=== PATIENT | female | born 1955 | race Hispanic/Latino ===

== ENCOUNTER 2021-10-04 16:58 | Inpatient (IN) | payer MEDICARE, MEDICAID ==
[2021-10-04 18:27] LABS: #Eosinphils 0.1 10x3/uL (0.0-0.5); #Monocytes 0.5 10x3/uL (0.0-1.1); #Neutrophils 4.1 10x3/uL (1.5-8.4); %Basophils 0.4 % (0.0-2.0); %Eosinophils 1.6 % (0.0-6.0); %Lymphocytes 31.2 % (18.0-47.0); %Monocytes 7.2 % (0.0-10.0); %Neutrophils 59.3 % (40.0-75.0); Hemoglobin 12.5 g/dL (12.0-15.5); Mean Corpuscular HGB CONC 32.4 g/dL (32.0-36.0); Mean Corpuscular Hemoglobin 30.4 pg (27.0-33.0); Mean Corpuscular Volume 93.9 fl (81.6-98.3); Mean Platelet Volume 11.8 fl (7.4-10.4); Platelet Count 213 10x3/uL (150-450); RBC Distribution Width 14.3 % (11.5-14.5); Red Blood Cell (RBC) Count 4.11 10x6/uL (3.90-5.03); White Blood Cell (WBC) Count 6.8 10x3/uL (3.5-10.5)
[2021-10-04 18:47] LABS: ALT (SGPT) 44 U/L (8-55); AST (SGOT) 33 U/L (5-34); Albumin 4.1 g/dL (3.4-4.8); Alkaline Phosphatase 105 U/L (40-110); Anion Gap 11 mmol/L (10-20); BUN (Urea Nitrogen) 14 mg/dL (9.8-20.1); Bilirubin, Total 0.6 mg/dL (0.2-1.2); Calc. Creatinine Clearance 0 mL/min (70-130); Calcium 8.9 mg/dL (7.8-10.44); Carbon Dioxide 25 mmol/L (23-31); Chloride 106 mmol/L (98-107); Globulin 2.7 g/dL (2.4-3.5); Glucose 148 mg/dL (80-115); Lipase 12 U/L (8-78); Potassium 3.9 mmol/L (3.5-5.1); Protein, Total 6.8 g/dL (5.8-8.1); Sodium 138 mmol/L (136-145)
[2021-10-04] MEDS ORDERED: HYDROcodone/Acetaminophen 5/325 mg Tablet PO SCH (23:00)
[2021-10-04] MEDS ORDERED: Sodium Chloride 0.9% 1,000 ML IV SCH (23:00)
[2021-10-04 23:08] VITALS: BMI 36.5
[2021-10-05 04:33] LABS: #Eosinphils 0.2 10x3/uL (0.0-0.5); #Monocytes 0.6 10x3/uL (0.0-1.1); #Neutrophils 4.6 10x3/uL (1.5-8.4); %Basophils 0.5 % (0.0-2.0); %Eosinophils 1.9 % (0.0-6.0); %Lymphocytes 30.8 % (18.0-47.0); %Monocytes 7.1 % (0.0-10.0); %Neutrophils 59.6 % (40.0-75.0); Hemoglobin 11.6 g/dL (12.0-15.5); Mean Corpuscular HGB CONC 33.3 g/dL (32.0-36.0); Mean Corpuscular Hemoglobin 31.3 pg (27.0-33.0); Mean Corpuscular Volume 93.8 fl (81.6-98.3); Mean Platelet Volume 11.8 fl (7.4-10.4); Platelet Count 183 10x3/uL (150-450); RBC Distribution Width 14.5 % (11.5-14.5); Red Blood Cell (RBC) Count 3.71 10x6/uL (3.90-5.03); White Blood Cell (WBC) Count 7.7 10x3/uL (3.5-10.5)
[2021-10-05 04:45] LABS: Anion Gap 16 mmol/L (10-20); BUN (Urea Nitrogen) 13 mg/dL (9.8-20.1); Calc. Creatinine Clearance 124 mL/min (70-130); Calcium 8.7 mg/dL (7.8-10.44); Carbon Dioxide 24 mmol/L (23-31); Chloride 111 mmol/L (98-107); Glucose 102 mg/dL (80-115); Magnesium 2.1 mg/dL (1.6-2.6); Sodium 147 mmol/L (136-145)
[2021-10-05] MEDS: Enoxaparin Sodium 40 MG/0.4 ML SYRINGE SC SCH (10:04)
[2021-10-05] MEDS: Ondansetron PF 4 MG/2 ML Vial IVP PRN (13:53)
[2021-10-05] MEDS: clonazePAM 1 MG TAB PO PRN (14:00)
[2021-10-05] MEDS: Gabapentin 400 MG CAP PO SCH ×2 (14:00→21:23)
[2021-10-05] MEDS: Fioricet 325/50/40 mg Tablet PO PRN (14:16)
[2021-10-05] MEDS: Polyethylene Glycol 3350 17 GM Packet PO SCH (21:22)
[2021-10-05] MEDS: Montelukast Sodium 10 mg Tablet PO SCH (21:22)
[2021-10-05] MEDS: buPROPion HCl 100 MG TAB PO SCH (21:23)
[2021-10-05] MEDS: Escitalopram Oxalate 20 mg Tablet PO SCH (21:23)
[2021-10-06 04:29] LABS: #Eosinphils 0.2 10x3/uL (0.0-0.5); #Monocytes 0.6 10x3/uL (0.0-1.1); #Neutrophils 4.8 10x3/uL (1.5-8.4); %Basophils 0.4 % (0.0-2.0); %Eosinophils 2.1 % (0.0-6.0); %Lymphocytes 27.6 % (18.0-47.0); %Monocytes 7.2 % (0.0-10.0); %Neutrophils 62.4 % (40.0-75.0); Mean Corpuscular Hemoglobin 30.8 pg (27.0-33.0); Mean Corpuscular Volume 93.3 fl (81.6-98.3); Mean Platelet Volume 11.6 fl (7.4-10.4); Platelet Count 198 10x3/uL (150-450); RBC Distribution Width 14.6 % (11.5-14.5); White Blood Cell (WBC) Count 7.7 10x3/uL (3.5-10.5)
[2021-10-06 04:51] LABS: Anion Gap 12 mmol/L (10-20); BUN (Urea Nitrogen) 15 mg/dL (9.8-20.1); Calc. Creatinine Clearance 117 mL/min (70-130); Calcium 8.9 mg/dL (7.8-10.44); Carbon Dioxide 25 mmol/L (23-31); Chloride 110 mmol/L (98-107); Glucose 94 mg/dL (80-115); Potassium 4.2 mmol/L (3.5-5.1); Sodium 143 mmol/L (136-145)
[2021-10-06] MEDS: Enoxaparin Sodium 40 MG/0.4 ML SYRINGE SC SCH (09:50)
[2021-10-06] MEDS: Famotidine 20 MG TAB PO SCH (09:50)
[2021-10-06] MEDS: Ondansetron PF 4 MG/2 ML Vial IVP PRN (09:50)
[2021-10-06] MEDS: buPROPion HCl 100 MG TAB PO SCH ×2 (09:51→21:52)
[2021-10-06] MEDS: Gabapentin 400 MG CAP PO SCH ×3 (09:51→21:53)
[2021-10-06] MEDS: Fluticasone Propionate Nasal Spray 16 gm Bottle NASAL SCH (09:52)
[2021-10-06] MEDS: Fioricet 325/50/40 mg Tablet PO PRN (09:55)
[2021-10-06] MEDS ORDERED: Bisacodyl 5 MG TAB PO SCH (12:15)
[2021-10-06] MEDS: Scopolamine 1.5 mg/72 hour Patch TD SCH (12:42)
[2021-10-06] MEDS ORDERED: Lisinopril 10 MG TAB PO SCH (17:45)
[2021-10-06] MEDS: Montelukast Sodium 10 mg Tablet PO SCH (21:51)
[2021-10-06] MEDS: Polyethylene Glycol 3350 17 GM Packet PO SCH (21:51)
[2021-10-06] MEDS: Escitalopram Oxalate 20 mg Tablet PO SCH (21:55)
[2021-10-07] MEDS: clonazePAM 1 MG TAB PO PRN ×2 (01:31→13:52)
[2021-10-07] MEDS: Fioricet 325/50/40 mg Tablet PO PRN ×2 (02:53→08:50)
[2021-10-07 04:52] LABS: #Eosinphils 0.1 10x3/uL (0.0-0.5); #Monocytes 0.6 10x3/uL (0.0-1.1); #Neutrophils 4.6 10x3/uL (1.5-8.4); %Basophils 0.5 % (0.0-2.0); %Eosinophils 1.9 % (0.0-6.0); %Lymphocytes 27.8 % (18.0-47.0); %Monocytes 8.4 % (0.0-10.0); %Neutrophils 61.1 % (40.0-75.0); Hemoglobin 11.6 g/dL (12.0-15.5); Mean Corpuscular HGB CONC 32.8 g/dL (32.0-36.0); Mean Corpuscular Hemoglobin 30.6 pg (27.0-33.0); Mean Corpuscular Volume 93.4 fl (81.6-98.3); Mean Platelet Volume 12.3 fl (7.4-10.4); Platelet Count 173 10x3/uL (150-450); RBC Distribution Width 14.6 % (11.5-14.5); Red Blood Cell (RBC) Count 3.79 10x6/uL (3.90-5.03); White Blood Cell (WBC) Count 7.5 10x3/uL (3.5-10.5)
[2021-10-07 05:20] LABS: Anion Gap 17 mmol/L (10-20); BUN (Urea Nitrogen) 15 mg/dL (9.8-20.1); Calc. Creatinine Clearance 112 mL/min (70-130); Calcium 8.8 mg/dL (7.8-10.44); Carbon Dioxide 24 mmol/L (23-31); Chloride 107 mmol/L (98-107); Glucose 119 mg/dL (80-115); Potassium 3.9 mmol/L (3.5-5.1); Sodium 144 mmol/L (136-145)
[2021-10-07] MEDS: Gabapentin 400 MG CAP PO SCH ×4 (08:50→21:49)
[2021-10-07] MEDS: Famotidine 20 MG TAB PO SCH (08:50)
[2021-10-07] MEDS: Lisinopril 20 MG TAB PO SCH (08:51)
[2021-10-07] MEDS: Ondansetron PF 4 MG/2 ML Vial IVP PRN (08:51)
[2021-10-07] MEDS: buPROPion HCl 100 MG TAB PO SCH ×2 (08:51→21:49)
[2021-10-07] MEDS: Fluticasone Propionate Nasal Spray 16 gm Bottle NASAL SCH (08:52)
[2021-10-07] MEDS: Enoxaparin Sodium 40 MG/0.4 ML SYRINGE SC SCH (08:52)
[2021-10-07] MEDS ORDERED: Amlodipine 5 MG TAB PO SCH (21:30)
[2021-10-07] MEDS: Escitalopram Oxalate 20 mg Tablet PO SCH (21:48)
[2021-10-07] MEDS: Montelukast Sodium 10 mg Tablet PO SCH (21:49)
[2021-10-07] MEDS: Polyethylene Glycol 3350 17 GM Packet PO SCH (21:49)
[2021-10-08 05:49] LABS: #Eosinphils 0.2 10x3/uL (0.0-0.5); #Monocytes 0.7 10x3/uL (0.0-1.1); #Neutrophils 3.2 10x3/uL (1.5-8.4); %Basophils 0.5 % (0.0-2.0); %Eosinophils 2.6 % (0.0-6.0); %Lymphocytes 36.8 % (18.0-47.0); %Monocytes 10.6 % (0.0-10.0); Mean Corpuscular HGB CONC 31.7 g/dL (32.0-36.0); Mean Corpuscular Hemoglobin 30.5 pg (27.0-33.0); Mean Corpuscular Volume 95.9 fl (81.6-98.3); Mean Platelet Volume 12.1 fl (7.4-10.4); Platelet Count 183 10x3/uL (150-450); RBC Distribution Width 14.6 % (11.5-14.5); Red Blood Cell (RBC) Count 3.94 10x6/uL (3.90-5.03); White Blood Cell (WBC) Count 6.6 10x3/uL (3.5-10.5)
[2021-10-08 06:03] LABS: Anion Gap 14 mmol/L (10-20); BUN (Urea Nitrogen) 16 mg/dL (9.8-20.1); Calc. Creatinine Clearance 107 mL/min (70-130); Calcium 9.1 mg/dL (7.8-10.44); Carbon Dioxide 27 mmol/L (23-31); Chloride 108 mmol/L (98-107); Glucose 97 mg/dL (80-115); Potassium 4.1 mmol/L (3.5-5.1); Sodium 145 mmol/L (136-145)
[2021-10-08] MEDS: Famotidine 20 MG TAB PO SCH (08:22)
[2021-10-08] MEDS: Gabapentin 400 MG CAP PO SCH ×3 (08:22→21:05)
[2021-10-08] MEDS: buPROPion HCl 100 MG TAB PO SCH ×2 (08:23→20:57)
[2021-10-08] MEDS: Lisinopril 20 MG TAB PO SCH (08:23)
[2021-10-08] MEDS: Enoxaparin Sodium 40 MG/0.4 ML SYRINGE SC SCH (08:24)
[2021-10-08] MEDS: Fluticasone Propionate Nasal Spray 16 gm Bottle NASAL SCH (08:24)
[2021-10-08] MEDS: clonazePAM 1 MG TAB PO PRN (08:32)
[2021-10-08] MEDS: Bisacodyl 5 MG TAB PO PRN (18:31)
[2021-10-08] MEDS: Montelukast Sodium 10 mg Tablet PO SCH (21:05)
[2021-10-08] MEDS: Escitalopram Oxalate 20 mg Tablet PO SCH (21:05)
[2021-10-08] MEDS: Polyethylene Glycol 3350 17 GM Packet PO SCH (21:08)
[2021-10-08] MEDS: Amlodipine 5 MG TAB PO SCH (21:09)
[2021-10-09 04:21] LABS: #Eosinphils 0.2 10x3/uL (0.0-0.5); #Monocytes 0.7 10x3/uL (0.0-1.1); #Neutrophils 5.3 10x3/uL (1.5-8.4); %Basophils 0.2 % (0.0-2.0); %Eosinophils 2.1 % (0.0-6.0); %Lymphocytes 26.8 % (18.0-47.0); %Monocytes 8.7 % (0.0-10.0); %Neutrophils 61.8 % (40.0-75.0); Hemoglobin 11.9 g/dL (12.0-15.5); Mean Corpuscular HGB CONC 32.9 g/dL (32.0-36.0); Mean Corpuscular Hemoglobin 31.5 pg (27.0-33.0); Mean Corpuscular Volume 95.8 fl (81.6-98.3); Platelet Count 176 10x3/uL (150-450); RBC Distribution Width 14.7 % (11.5-14.5); Red Blood Cell (RBC) Count 3.78 10x6/uL (3.90-5.03); White Blood Cell (WBC) Count 8.5 10x3/uL (3.5-10.5)
[2021-10-09] MEDS ORDERED: Acetaminophen 325 MG TAB PO PRN (04:33)
[2021-10-09 05:41] LABS: Anion Gap 19 mmol/L (10-20); BUN (Urea Nitrogen) 16 mg/dL (9.8-20.1); Calc. Creatinine Clearance 113 mL/min (70-130); Carbon Dioxide 22 mmol/L (23-31); Chloride 106 mmol/L (98-107); Glucose 97 mg/dL (80-115); Potassium 3.8 mmol/L (3.5-5.1); Sodium 143 mmol/L (136-145)
[2021-10-09] MEDS: Fioricet 325/50/40 mg Tablet PO PRN (08:15)
[2021-10-09] MEDS: Enoxaparin Sodium 40 MG/0.4 ML SYRINGE SC SCH (08:19)
[2021-10-09] MEDS: Famotidine 20 MG TAB PO SCH (08:19)
[2021-10-09] MEDS: Gabapentin 400 MG CAP PO SCH ×3 (08:19→22:46)
[2021-10-09] MEDS: Fluticasone Propionate Nasal Spray 16 gm Bottle NASAL SCH (08:19)
[2021-10-09] MEDS: buPROPion HCl 100 MG TAB PO SCH ×2 (08:20→22:45)
[2021-10-09] MEDS: Lisinopril 20 MG TAB PO SCH (08:20)
[2021-10-09] MEDS: clonazePAM 1 MG TAB PO PRN (08:28)
[2021-10-09] MEDS: Bisacodyl 5 MG TAB PO PRN (12:26)
[2021-10-09] MEDS: Scopolamine 1.5 mg/72 hour Patch TD SCH (12:26)
[2021-10-09] MEDS: Polyethylene Glycol 3350 17 GM Packet PO SCH (22:45)
[2021-10-09] MEDS: Montelukast Sodium 10 mg Tablet PO SCH (22:45)
[2021-10-09] MEDS: Escitalopram Oxalate 20 mg Tablet PO SCH (22:45)
[2021-10-09] MEDS: Amlodipine 5 MG TAB PO SCH ×2 (22:46→23:06)
[2021-10-10] MEDS: Fluticasone Propionate Nasal Spray 16 gm Bottle NASAL SCH (00:01)
[2021-10-10] MEDS ORDERED: diphenhydrAMINE 25 MG CAP PO PRN ×2 (01:18→09:07)
[2021-10-10 05:23] LABS: #Eosinphils 0.1 10x3/uL (0.0-0.5); #Monocytes 0.7 10x3/uL (0.0-1.1); #Neutrophils 3.9 10x3/uL (1.5-8.4); %Basophils 0.4 % (0.0-2.0); %Eosinophils 1.9 % (0.0-6.0); %Lymphocytes 28.8 % (18.0-47.0); %Monocytes 10.7 % (0.0-10.0); %Neutrophils 58.1 % (40.0-75.0); Hemoglobin 11.8 g/dL (12.0-15.5); Mean Corpuscular HGB CONC 32.2 g/dL (32.0-36.0); Mean Corpuscular Hemoglobin 30.8 pg (27.0-33.0); Mean Corpuscular Volume 95.8 fl (81.6-98.3); Mean Platelet Volume 11.6 fl (7.4-10.4); Platelet Count 174 10x3/uL (150-450); RBC Distribution Width 14.7 % (11.5-14.5); Red Blood Cell (RBC) Count 3.83 10x6/uL (3.90-5.03); White Blood Cell (WBC) Count 6.7 10x3/uL (3.5-10.5)
[2021-10-10 05:36] LABS: Anion Gap 12 mmol/L (10-20); BUN (Urea Nitrogen) 13 mg/dL (9.8-20.1); Calc. Creatinine Clearance 120 mL/min (70-130); Calcium 8.8 mg/dL (7.8-10.44); Carbon Dioxide 26 mmol/L (23-31); Chloride 107 mmol/L (98-107); Glucose 121 mg/dL (80-115); Potassium 3.8 mmol/L (3.5-5.1); Sodium 141 mmol/L (136-145)
[2021-10-10] MEDS: Fioricet 325/50/40 mg Tablet PO PRN (08:12)
[2021-10-10] MEDS ORDERED: Bisacodyl 5 MG TAB PO PRN (09:13)
[2021-10-10] MEDS: Enoxaparin Sodium 40 MG/0.4 ML SYRINGE SC SCH (10:06)
[2021-10-10] MEDS: Famotidine 20 MG TAB PO SCH (10:07)
[2021-10-10] MEDS: buPROPion HCl 100 MG TAB PO SCH ×2 (10:07→20:54)
[2021-10-10] MEDS: Gabapentin 400 MG CAP PO SCH ×3 (10:07→20:52)
[2021-10-10] MEDS: Spironolactone 25 MG TAB PO SCH (10:08)
[2021-10-10] MEDS: Lisinopril 20 MG TAB PO SCH (10:08)
[2021-10-10] MEDS: clonazePAM 1 MG TAB PO PRN ×2 (11:56→23:35)
[2021-10-10] MEDS: Docusate 100 MG CAP PO SCH (20:52)
[2021-10-10] MEDS: Montelukast Sodium 10 mg Tablet PO SCH (20:52)
[2021-10-10] MEDS: Amlodipine 5 MG TAB PO SCH (20:53)
[2021-10-10] MEDS: Escitalopram Oxalate 20 mg Tablet PO SCH (20:53)
[2021-10-10] MEDS: Polyethylene Glycol 3350 17 GM Packet PO SCH (20:53)
[2021-10-11] MEDS: Gabapentin 400 MG CAP PO SCH (08:15)
[2021-10-11] MEDS: Lisinopril 20 MG TAB PO SCH (08:16)
[2021-10-11] MEDS: Spironolactone 25 MG TAB PO SCH (08:16)
[2021-10-11] MEDS: Enoxaparin Sodium 40 MG/0.4 ML SYRINGE SC SCH (08:17)
[2021-10-11] MEDS: buPROPion HCl 100 MG TAB PO SCH (08:17)
[2021-10-11] MEDS: Fluticasone Propionate Nasal Spray 16 gm Bottle NASAL SCH (08:17)
[2021-10-11] MEDS: Docusate 100 MG CAP PO SCH (08:17)
[2021-10-11] MEDS: Ondansetron PF 4 MG/2 ML Vial IVP PRN (08:17)
[2021-10-11] MEDS: Famotidine 20 MG TAB PO SCH (08:17)
[2021-10-11 08:28] VITALS: BP 168/74; TEMP 97.2
[2021-10-11] MEDS: clonazePAM 1 MG TAB PO PRN (12:30)
== END 2021-10-11 16:49 | DRG 309 ==
LOC: CSHERS 16:58 → INTOOBSV 21:55 → UNDOADMIN 21:55 → OBSVTOIN 21:55 → CSHTELE 21:55
PROVIDERS: ADMIT Family Medicine; ATTEND Internal Medicine
DX: R00.1 Bradycardia, unspecified (principal); F32.1 Major depressive disorder, single episode, moderate; R53.1 Weakness; M19.90 Unspecified osteoarthritis, unspecified site; M79.7 Fibromyalgia; F32.A Depression, unspecified; R55 Syncope and collapse; I10 Essential (primary) hypertension; R53.81 Other malaise; F41.9 Anxiety disorder, unspecified; J45.20 Mild intermittent asthma, uncomplicated; T44.7X5A Adverse effect of beta-adrenoreceptor antagonists, initial encounter; R51.9 Headache, unspecified; K21.9 Gastro-esophageal reflux disease without esophagitis; E11.40 Type 2 diabetes mellitus with diabetic neuropathy, unspecified; Z20.822 Contact with and (suspected) exposure to COVID-19; Z98.84 Bariatric surgery status; Z88.1 Allergy status to other antibiotic agents; Z88.5 Allergy status to narcotic agent; Z88.8 Allergy status to other drugs, medicaments and biological substances; Z79.899 Other long term (current) drug therapy; Z79.51 Long term (current) use of inhaled steroids; Z90.710 Acquired absence of both cervix and uterus; Z98.51 Tubal ligation status; Z90.49 Acquired absence of other specified parts of digestive tract; Z82.3 Family history of stroke; Z82.49 Family history of ischemic heart disease and other diseases of the circulatory system
CPT/HCPCS: 36415; 70450; 71045; 80048; 80053; 83690; 83735; 84443; 84484; 85025; 93005; 93010; 93306; 96372; 96374; 96376; G0378; J1650; J2405; J7050; U0003; U0005

== ENCOUNTER 2022-06-18 17:27 | Emergency (ER) | payer OTHER ==
[2022-06-19] MEDS ORDERED: Ondansetron PF 4 MG/2 ML Vial ONE (00:24)
== END 2022-06-19 02:45 | disposition home or self-care (01) ==
LOC: CSHERS 17:27
DX: U07.1 COVID-19 (principal); E11.9 Type 2 diabetes mellitus without complications; I10 Essential (primary) hypertension
CPT/HCPCS: 96361; 96374; J2405